=== PATIENT | male | born 2000 | race Caucasian/White ===

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

== ENCOUNTER 2023-10-25 20:12 | Outpatient (CLI) | payer MEDICARE, OTHER, MEDICAID | END 2023-10-25 23:59 | disposition EMS.NT | LOC: EMS 20:12 | DX: R53.1 Weakness (principal); F41.9 Anxiety disorder, unspecified; R06.00 Dyspnea, unspecified; R20.2 Paresthesia of skin ==